=== PATIENT | female | born 1995 | race Caucasian/White ===

== ENCOUNTER → 2020-11-26 | Outpatient (CLI) | payer BC ==
[~2020-11-26] MED LIST: MINOCYCLIN100 MG/CAP PO; ORTHO TRI-CYCLE1 TAB PO
[2020-11-26 09:58] LABS: ALBUMIN 4.3 gm/dL (3.5-5.0); BILIRUBIN,TOTAL 0.4 mg/dL (0.0-1.0); CALCIUM 9.8 mg/dL (8.4-10.2); CHOLESTEROL RISK RATIO 3.6; CREATININE, serum 0.86 (0.52-1.25); POTASSIUM 4.2 mmol/L (3.4-5.0); TOTAL PROTEIN 7.8 gm/dL (6.4-8.2)
== END ==
LOC: COL.LAB 08:49
DX: L70.0 Acne vulgaris (principal); K13.0 Diseases of lips; L85.3 Xerosis cutis; Z79.899 Other long term (current) drug therapy

== ENCOUNTER 2023-08-27 20:10 | Emergency (ER) | payer BC ==
[~2023-08-27] VITALS: Ht 182.9 cm; Wt 88.6 kg
[~2023-08-27 20:10] MED LIST changes: +AMOXICILLIN 8751 TAB PO
[2023-08-27 20:17] VITALS: TEMP 97.7
[2023-08-27] MEDS ORDERED: Ibuprofen 600 MG TAB PO ONE (22:15)
[2023-08-27 22:52] VITALS: BP 122/81; PULSE 75
== END 2023-08-27 22:52 | disposition home or self-care (01) ==
LOC: COL.ER 20:10
DX: S93.401A Sprain of unspecified ligament of right ankle, initial encounter (principal); W51.XXXA Accidental striking against or bumped into by another person, initial encounter; X50.1XXA Overexertion from prolonged static or awkward postures, initial encounter; Y93.68 Activity, volleyball (beach) (court); Y92.39 Other specified sports and athletic area as the place of occurrence of the external cause